=== PATIENT | male | born 1990 | race Caucasian/White ===

== ENCOUNTER 2017-08-28 19:38 | Emergency (ER) | END 2017-08-28 22:38 | disposition home or self-care (01) ==

== ENCOUNTER 2018-05-17 11:27 | Inpatient (IN) | payer SELFPAY ==
[~2018-05-17] VITALS: Ht 157.5 cm; Wt 86.3 kg
[2018-05-17] VITALS (12 sets, daily range): BP systolic 129–180; BP diastolic 65–112; PULSE 64–109; RESP 17–24; Ht 157.5 cm; Wt 86.3 kg
[~2018-05-17 11:27] MED LIST: ASPIRIN 81 MG TAB ONE; CYCL10TA7 PO; IBUP-1542 PO; NITROGLYCERIN (SL) 0.4 MG TAB ONE
[2018-05-17] MEDS ORDERED: HEPARIN 1000 UNITS/ML 10 ML INJ ONE (11:46)
[2018-05-17] MEDS ORDERED: VERAPAMIL 5 MG INJ ONE (11:46)
[2018-05-17] MEDS ORDERED: NITROGLYCERIN (IC) 100 MCG/ML INJ ONE (11:46)
--- NOTE | 2018-05-17 11:55 | CONS ---
Assessment/Plan Assessment/Plan Hospital Course (Demo Recall) Anterior STEMI: in a 27 yo meth abuser, still suspicious for spasm but no response to SL NTG and ongoing symptoms so cath to eval. Meth abuse -to rn cardiac cath emergently for cath Consultation Date/Type/Reason Admit Date/Time Date of Consultation: May 17, 2018 Type of Consult Interventional cardiology Reason for Consultation STEMI Requesting Provider: SHERON ANDERSON MD Date/Time of Note DATE: 05/17/18 TIME: 11:52 Hx of Present Illness 27 yo M with meth abuse history who presented with chest pain. He last used meth 2 days ago. The chest pain started this am. He was given NTG SL x 3 without response and with continued chest pain and STEMI by EKG. per hpi Past Medical History per hPI Home Meds Active Scripts Cyclobenzaprine Hcl* (Cyclobenzaprine Hcl*) 10 Mg Tablet, 10 MG PO TID, #15 TAB Prov:COLEEN MCPHERSON PA-C 08/28/17 Ibuprofen* (Motrin*) 600 Mg Tab, 600 MG PO Q6, #30 TAB Prov:COLEEN MCPHERSON PA-C 08/28/17 Medications Current Medications Aspirin (Aspirin) 324 mg ONCE ONCE PO ; Start 05/17/18 at 12:00; Stop 05/17/18 at 12:01 Nitroglycerin (Nitroglycerin (Sl Tab) 0.4 Mg) 1 tab ONCE ONCE SL ; Start 05/17/18 at 12:00; Stop 05/17/18 at 12:01 Social History Smoking Status: Never smoker Exam/Review of Systems Exam Vitals Vital Signs Date Temp Pulse Resp B/P (MAP) Pulse Ox O2 O2 Flow FiO2 Time Delivery Rate 05/17/18 72 24 176/110 100 Room Air 11:47 (132) 05/17/18 98.4 11:40 Constitutional: alert, distress Head: normocephalic, atraumatic Neck: No jvd Respiratory: clear to auscultation, diminished breath sounds Cardiovascular: regular rate and rhythm; No edema Gastrointestinal: soft, non-tender; No distended Neurological: nl mental status, nl speech Results Results 24hrs Laboratory Tests Test 05/17/18 11:40 White Blood Count Pending Red Blood Count Pending Hemoglobin Pending Hematocrit Pending Mean Corpuscular Volume Pending Mean Corpuscular Hemoglobin Pending Mean Corpuscular Hemoglobin Concent Pending Red Cell Distribution Width Pending Platelet Count Pending Mean Platelet Volume Pending Medications Medication Current Medications Aspirin (Aspirin) 324 mg ONCE ONCE PO ; Start 05/17/18 at 12:00; Stop 05/17/18 at 12:01 Nitroglycerin (Nitroglycerin (Sl Tab) 0.4 Mg) 1 tab ONCE ONCE SL ; Start 05/17/18 at 12:00; Stop 05/17/18 at 12:01 KIMI VELOZ May 17, 2018 11:55
[2018-05-17] MEDS ORDERED: NITROGLYCERIN (SL) 0.4 MG TAB ONE (11:56)
[2018-05-17] MEDS ORDERED: NITROGLYCERIN (SL) 0.4 MG TAB SL ONE ×2 (12:00→20:30)
[2018-05-17] MEDS ORDERED: ASPIRIN 81 MG TAB PO ONE (12:00)
[2018-05-17] MEDS ORDERED: FENTAnyl 50 MCG/ML VIAL ONE (12:05)
[2018-05-17] MEDS ORDERED: TICAGRELOR 90 MG TABLET ONE (12:10)
[2018-05-17] MEDS ORDERED: BIVALIRUDIN 250MG /NS 50 ML 50 ML IVPB ONE ×2 (12:19→12:46)
[2018-05-17] MEDS ORDERED: IODIXANOL LOCM 100 ML BTL ONE (12:53)
[2018-05-17] MEDS ORDERED: IOHEXOL 350MG/ML 50 ML BTL ONE (12:53)
[2018-05-17] MEDS ORDERED: LIDOCAINE 1% (MDV) 20 ML INJ ONE (12:53)
--- NOTE | 2018-05-17 13:23 | OPR ---
Date/Time of Note Date/Time of Note DATE: 05/17/18 TIME: 13:09 Operative Report Procedure Date: May 17, 2018 Preoperative Diagnosis ANterior STEMI Postoperative Diagnosis same s/p PCI of LAD Operation/Procedure Performed see details Surgeon see signature line Makeup Sales Consultant none Anesthesia Type: moderate sedation Estimated Blood Loss: minimal Transfusion none Specimen none Grafts/Implants none Complications none Procedure Description Procedure Date:05/17/2018 Parts Person/surgeon: Carlin Pastrana MD. Procedures Performed: 1)Left heart catheterization with selective left and right coronary angiography. 2)Balloon angioplasty and stenting of the prox to mid LAD with Synergy 2.5 x 16 and 2.75 x 20 overlapping stents Pre-operative Diagnosis:anterior STEMI Post-operative Diagnosis:same s/p PCI Indications: 27 yo M with meth abuse, presenting with chest pain and anterior STEMI. No response to SL NTG and continued symptoms so taken to the slabber for evaluation. Description of Procedure: After informed consent, the patient was brought to the cardiac catheterization l ab. The procedure site was prepped and draped in usual manner. The patient was premedicated with fentanyl 50 mcg. 3 mL lidocaine was injected into the right groin. Next using the posterior wall technique, the 6/5 [place] island[place] sheath was inserted into the right radial artery. Next using the EBU 3.25 guide and JR4 diagnostic, selective angiography of the left and right coronary arteries were obtained. The decision was made to proceed with PCI of the LAD after there was no response with IC NTG. A 6 [place] islander EBU 3.25 guide was advanced and engaged into the left coronary artery. After appropriate anticoagulation and antiplatelets were given, the BMW angioplasty wire was used but could not be advanced to the main distal LAD. It kept going into the septal. Next a PT 2 light support wire was also used but again was thought to be in the septal. The proximal aspect of the wire was in the LAD so this was dilated with the 2.0 x 12 balloon with minimal flow and still no evidence of the distal LAD. Eventually the BMW was redirected into the true LAD and the lesion dilated with the 2.0 balloon. There was now MARGARITA 3 flow. The mid lesion at the septal appeared to be the main culprit as it was hazy so this was stented with a Synergy 2.5 x 16 stent. The proximal occlusion was still thought to be part of the overall plaque so this too was stented with a Synergy 2.75 x 20 stent overlapping with the mid stent. Next the stent was post dilated with the 2.75 X 12 noncompliant balloon times Final angiography revealed MARGARITA 3 flow, no edge dissection, and appropriate stent expansion. The pigtail was then advanced into the ventricle and hemodynamics obtained. Left ventricle angiography was not obtained. Next all equipment was removed and hemostasis was achieved by TR band. Findings: Anatomy/Hemodynamics: Left main:normal LAD: prox 100% unresponsive to IC NTG Diagonal:ostial 40% at prox LAD Circumflex:luminal irregularities Obtuse marginal:luminal irregularities RCA:luminal irregularities PDA:luminal irregularities PLV:luminal irregularities LV angiography:note done LV-Ao:no gradient LVEDP:25 mmHg Contrast used:150 mL Medications used: Fentanyl 50 NTG IC Radial cocktail: heparin 4000 units, NTG 200mcg, verapamil 2.5mg Angiomax Brilinta 180mg Equipment used: 6 [place] islander EBU 3.25 guide BMW and PT 2 LS angioplasty wire 2 x 12 balloon Synergy 2.5 x 16 drug eluting stent Synergy 2.75 x 20 drug eluting stent 2.75 x 12 noncompliant balloon Estimated blood loss<10 mL. Specimen: none Grafts/implants: none Complications: none Assessment: Anterior STEMI/CAD: s/p PCI of prox to mid LAD. Appeared to be plaque rupture MD rather than spasm from meth abuse Meth abuse Plan: -ASA -Brilinta 90mg BID if pt can obtain insurance, otherwise switch to plavix -lipitor 80mg -lisinopril 10mg -start coreg if pt can show abstinence from methamphetamines -check echo CARLIN PASTRANA May 17, 2018 13:22
--- NOTE | 2018-05-17 14:49 | HP ---
Date/Time of Note Date/Time of Note DATE: 05/17/18 TIME: 14:35 Assessment/Plan VTE Prophylaxis Pharmacological prophylaxis: NA/contraindicated Pharm contraindication: bleeding Lines/Catheters IV Catheter Type (from Nrs): Saline Lock Urinary Cath still in place: No Assessment/Plan Assessment/Plan 27 yo man no PMH, active tobacco smoker and meth user presents with STEMI. #STEMI - s/p cardiac cath and stent on 05/17/18. - Cont aspirin and (brilinta or plavix) - Risk factors: Obesity, tobacco, cigarettes. - Will send lipids, TSH, A1C as well. - Dr. Pastrana following, appreciate block action. - Monitor overnight in ICU #Tobacco use - Patient strongly counselled on cessation - Declined nicotine patch #Meth use - Patient strongly counselled on cessation Result Diagram: 05/17/18 1140 05/17/18 1140 HPI/ROS Admit Date/Time Admit Date/Time May 17, 2018 Hx of Present Illness Mr. Figueroa is a pleasant 27 yo man who presents to the ED with chest pain; found to have acute STEMI. He was in his usual state of health until 1 week ago. Post-coitally, he smoked a cigarette then walked down the stairs when he developed pressure-like substernal chest pain. Never had this pain before in his life. Called mother who told him to call an ambulance. Ambulance arrived, took his vitals, said he looked fine. Asked if he wanted to go to the hospital and patient declined. 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 Called his mother to drive him to the emergency room. In the ED he was afebrile, hypertensive to 196/133, P 70s, RR 24. EKG with ST elevations in V2-V5. Code STEMI was called. Taken to lab[facility] wh[facility] by Dr. Pastrana. Found to have proximal and mid LAD 100% occlusion which was stented with MARGARITA 3 flow. Post-procedure taken to ICU. Currently feeling well, chest pain free, no compla ints. ROS Denies recent fevers, chills, weight loss, anorexia, night sweats, sore throat, dysphagia, nausea, vomiting, dyspnea, cough, diarrhea, constipation, dysuria, hematuria. PMH/Family/Social Past Medical History Denies Medications Current Medications Aspirin (Aspirin) 81 mg DAILY PO ; Start 05/18/18 at 09:00 Ticagrelor (Brilinta) 90 mg BID PO ; Start 05/17/18 at 21:00 Atorvastatin Calcium (Lipitor) 80 mg QHS PO ; Start 05/17/18 at 21:00 Lisinopril (Zestril) 10 mg DAILY PO ; Start 05/18/18 at 09:00 Bivalirudin 50 ml @ 32 mls/hr Q1H34M IVPB ; Start 05/17/18 at 14:30; Stop 05/17/18 at 17:00 Coded Allergies: No Known Allergy (Unverified , 05/17/18) Past Surgical History Denies Social History Alcohol Use: none Smoking Status: Current every day smoker (1 pack every 3-4 days (6-8 cigs per day)) Drug Use: other (Smoked methamphetamine on and off since age 22, most recently every weekend. ) Exam/Review of Systems Vital Signs Vitals Vital Signs Date Temp Pulse Resp B/P (MAP) Pulse Ox O2 O2 Flow FiO2 Time Delivery Rate 05/17/18 98.9 86 17 129/93 Room Air 13:30 (105) 05/17/18 100 11:47 Exam Exam Gen: Obese 27 yo man lying in bed well appearing, no acute distress. Eyes: PERRL, no icterus HEENT: Moist mucous membranes clear oropharynx Neck: No lymphadenopathy, nontender Card: Regular rate and rhythm, no murmurs appreciated Pulm: Clear to auscultation bilaterally, breathing comfortably room air. Abd: Soft, nontender, nondistended. Ext: R arm pressure dressing intact. No active bleeding. Otherwise no cyanosis/clubbing/edema, good peripheral pulses Skin: warm, dry, well perfused. HALI DING MD May 17, 2018 14:46
[2018-05-17] MEDS: BIVALIRUDIN 250MG /NS 50 ML 50 ML IVPB SCH ×2 (15:27→16:04)
--- NOTE | 2018-05-17 17:49 | ERD ---
ER Documentation Chief Complaint Chief Complaint substernal chest pain HPI The patient is a 27-year-old male, presenting to the ER because of substernal chest pain intermittently for 1 week, worse today about 1 hour prior to arrival, about 10 AM, radiating down to left arm. He is diaphoretic, 10/10, no aggravating or relieving factor. He denies similar symptoms previously, denies headache, neck pain, dyspnea, abdominal pain, vomiting, dysuria, diarrhea. He does not drink but smokes and does amphetamine, last use was about 2 days ago Medical/surgical history: None ROS All systems reviewed and are negative except as per history of present illness. Medications Home Meds Active Scripts Cyclobenzaprine Hcl* (Cyclobenzaprine Hcl*) 10 Mg Tablet, 10 MG PO TID, #15 TAB Prov:COLEEN MCPHERSON PA-C 08/28/17 Ibuprofen* (Motrin*) 600 Mg Tab, 600 MG PO Q6, #30 TAB Prov:COLEEN MCPHERSON PA-C 08/28/17 Allergies Allergies: Coded Allergies: No Known Allergy (Unverified , 05/17/18) PMhx/Soc Medical and Surgical Hx: pt denies Medical Hx, pt denies Surgical Hx History of Surgery: No Anesthesia Reaction: No Hx Neurological Disorder: No Hx Respiratory Disorders: No Hx Cardiac Disorders: No Hx Psychiatric Problems: No Hx Miscellaneous Medical Probl: No Hx Substance Use: No (CRYSTAL METH, POT (1 DUB EVERY 2-3 DAYS)) Hx Tobacco Use: Yes Smoking Status: Current every day smoker (1 pack every 3-4 days (6-8 cigs per day)) Physical Exam Vitals Vital Signs Date Temp Pulse Resp B/P (MAP) Pulse Ox O2 O2 Flow FiO2 Time Delivery Rate 05/17/18 72 24 176/110 100 Room Air 11:47 (132) 05/17/18 76 24 176/120 100 Room Air 11:45 (138) 05/17/18 98.4 71 24 196/133 100 11:40 (154) Physical Exam Const: No acute distress. Head: Atraumatic. Eyes: Normal Conjunctiva. ENT: Normal External Ears, Nose and Mouth. Neck: Full range of motion. No meningismus. Resp: Clear to auscultation bilaterally. Cardio: Regular rate and rhythm. Diaphoretic Abd: Soft, non distended, normal bowel sounds, non tender. Skin: No petechiae or rashes. Back: No midline or flank tenderness. Ext: No cyanosis, or edema. Neur: Awake and alert. No focal deficit Psych: Normal Mood and Affect. Result Diagram: 05/17/18 1140 05/17/18 1140 Results 24 hrs Laboratory Tests Test 05/17/18 11:40 White Blood Count 8.9 10^3/ul Red Blood Count 5.63 10^6/ul Hemoglobin 17.4 g/dl Hematocrit 50.0 % Mean Corpuscular Volume 88.8 fl Mean Corpuscular Hemoglobin 30.9 pg Mean Corpuscular Hemoglobin Concent 34.8 g/dl Red Cell Distribution Width 12.3 % Platelet Count 346 10^3/UL Mean Platelet Volume 9.6 fl Immature Granulocytes % 0.300 % Neutrophils % 52.4 % Lymphocytes % 36.5 % Monocytes % 9.3 % Eosinophils % 1.1 % Basophils % 0.4 % Nucleated Red Blood Cells % 0.0 /100WBC Immature Granulocytes # 0.030 10^3/ul Neutrophils # 4.7 10^3/ul Lymphocytes # 3.3 10^3/ul Monocytes # 0.8 10^3/ul Eosinophils # 0.1 10^3/ul Basophils # 0.0 10^3/ul Nucleated Red Blood Cells # 0.0 10^3/ul Prothrombin Time 12.8 Sec Prothrombin Time Ratio 1.0 INR International Normalized Ratio 0.95 Activated Partial Thromboplast Time 25.7 Sec Sodium Level 142 mmol/L Potassium Level 4.2 mmol/L Chloride Level 104 mmol/L Carbon Dioxide Level 27 mmol/L Anion Gap 11 Blood Urea Nitrogen 11 mg/dl Creatinine 0.86 mg/dl Est Glomerular Filtrat Rate mL/min > 60 mL/min Glucose Level 128 mg/dl Calcium Level 9.8 mg/dl Troponin I 0.014 ng/ml Current Medications Medications Dose Sig/Luca Start Time Status Last (Trade) Ordered Route PRN Stop Time Admin Dose Reason Admin Heparin 10,000 unit STK-MED 05/17/18 DC Sodium ONCE .ROUTE 11:46 05/17/18 (Porcine) 11:47 (Heparin (1000 Units/ml)) Verapamil 5 mg STK-MED 05/17/18 DC HCl ONCE .ROUTE 11:46 05/17/18 (Verapamil) 11:47 1,000 mcg STK-MED 05/17/18 DC Nitroglycerin ONCE .ROUTE 11:46 05/17/18 11:47 (Nitroglyceri n (Intracoronar y)) 25 tab STK-MED 05/17/18 DC Nitroglycerin ONCE .ROUTE 11:56 05/17/18 11:57 (Nitroglyceri n (Sl Tab) 0.4 Mg) Procedures/MDM EKG: At 11:31 PM read by emergency physician Rate/Rhythm: Normal Sinus Rhythm 71 beats/min QRS, ST, T-waves: Anterior ST elevation with reciprocal change, no PVC Impression: Abnormal EKG, anterior STEMI Consultation: I discussed the patient with the on-call plate shop helper Zeina at 11:35 PM, who was made aware of the patient condition, the treatment, the EKG findings. He came to the ER shortly after to evaluate patient and took the patient to the [facility] chest x-ray and labs are pending He went to [facility] prior to availability of the labs and chest x-ray results \MEDICAL MAKING DECISION: The patient is a 27-year-old male, presenting with acute anterior STEMI, was treated with aspirin 325 mg chew and swallow, 3 nitroglycerin sublingual approximately 5 minutes apart with minimal response. EKG was unchanged after nitroglycerin administration. The chest is persistent. The differential diagnoses considered include but are not limited to coronary spasm, acute coronary syndrome, acute myocardial infarction, pericarditis, pulmonary embolism, aortic dissection, pneumonia, pleural effusion, pneumothorax, GERD, chest wall pain. Critical Care: Time: 35 minutes excluding all billable procedures. Treatments/Evaluations: Close monitoring and treatment of unstable vital signs, cardiorespiratory, and neurologic status, while maintaining tight balance of fluid, respiratory, and cardiac interventions. Departure Diagnosis: Primary Impression: ST elevation myocardial infarction (STEMI) Condition: Critical Comments I discussed the findings with the patient. I discussed the patient with the hospitalist Dr Aguilar at 12pm . who was made aware of the lab, the treatment, the patient condition. The patient is admitted to ICU Disclaimer: Inadvertent spelling and grammatical errors are likely due to EHR/dictation software use and do not reflect on the overall quality of patient care. Also, please note that the electronic time recorded on this note does not necessarily reflect the actual time of the patient encounter. SHERON ANDERSON MD 4, 2019 17:49
[2018-05-17] MEDS ORDERED: morphine 2 MG INJ IV STA (20:52)
[2018-05-17] MEDS ORDERED: NITROGLYCERIN (SL) 0.4 MG TAB SL PRN (21:00)
[2018-05-17] MEDS: ATORVASTATIN 80 MG TAB PO SCH (21:06)
[2018-05-17] MEDS: TICAGRELOR 90 MG TABLET PO SCH (21:07)
[2018-05-17] MEDS ORDERED: morphine 2 MG INJ IV PRN (21:30)
[2018-05-18] VITALS (25 sets, daily range): BP systolic 93–168; BP diastolic 58–104; PULSE 69–95; RESP 16–27
[2018-05-18] MEDS: ASPIRIN 81 MG TAB PO SCH (08:12)
[2018-05-18] MEDS: LISINOPRIL 10 MG TAB PO SCH (08:12)
[2018-05-18] MEDS: TICAGRELOR 90 MG TABLET PO SCH ×2 (08:16→20:27)
--- NOTE | 2018-05-18 09:10 | PN ---
Date/Time of Note Date/Time of Note DATE: 05/18/18 TIME: 09:05 Assessment/Plan VTE Prophylaxis Risk score (from Nsg)>0 risk: 3 SCD applied (from Ns): No SCD contraindicated: low risk/ambulating Pharmacological prophylaxis: NA/contraindicated Pharm contraindication: low risk/ambulating Lines/Catheters IV Catheter Type (from Nrs): Saline Lock Urinary Cath still in place: No Assessment/Plan Assessment/Plan 27 yo man no PMH, active tobacco smoker and meth user presents with STEMI. #STEMI - s/p cardiac cath and stent on 05/17/18. - Cont aspirin and (brilinta or plavix) - Risk factors: Obesity, tobacco, cigarettes. - A1C, TSH normal - Dr. Pastrana following #Tobacco use - Patient strongly counselled on cessation - Declined nicotine patch #Meth use - Patient strongly counselled on cessation Result Diagram: 05/18/18 0433 05/18/18 0433 Subjective 24 Hr Interval Summary Free Text/Dictation Overnight had some chest soreness, relieved by morphine. Otherwise slept well. No acute overnight events. Tolerating diet, ambulating. Exam/Review of Systems Exam Vitals Vital Signs Date Temp Pulse Resp B/P (MAP) Pulse Ox O2 O2 Flow FiO2 Time Delivery Rate 05/18/18 76 19 122/84 Room Air 07:00 (97) 05/18/18 99.4 04:00 05/17/18 100 11:47 Intake and Output 05/17/18 05/17/18 05/18/18 1515:00 23:00 07:00 IntakeIntake Total 300 ml 650 ml BalanceBalance 300 ml 650 ml Exam Gen: Obese 27 yo man lying in bed well appearing, no acute distress. Eyes: PERRL, no icterus HEENT: Moist mucous membranes clear oropharynx Neck: No lymphadenopathy, nontender Card: Regular rate and rhythm, no murmurs appreciated Pulm: Clear to auscultation bilaterally, breathing comfortably room air. Abd: Soft, nontender, nondistended. Ext: R wrist not bleeding, clean. No active bleeding. Otherwise no cyanosis/clubbing/edema, good peripheral pulses Skin: warm, dry, well perfused. Results Results 24hrs Laboratory Tests Test 05/17/18 11:40 05/17/18 17:02 05/17/18 20:46 05/18/18 00:07 White Blood Count 8.9 Red Blood Count 5.63 Hemoglobin 17.4 Hematocrit 50.0 Mean Corpuscular Volume 88.8 Mean Corpuscular 30.9 Hemoglobin Mean Corpuscular 34.8 Hemoglobin Concent Red Cell Distribution 12.3 Width Platelet Count 346 Mean Platelet Volume 9.6 Immature Granulocytes % 0.300 Neutrophils % 52.4 Lymphocytes % 36.5 Monocytes % 9.3 Eosinophils % 1.1 Basophils % 0.4 Nucleated Red Blood 0.0 Cells % Immature Granulocytes # 0.030 Neutrophils # 4.7 Lymphocytes # 3.3 H Monocytes # 0.8 Eosinophils # 0.1 Basophils # 0.0 Nucleated Red Blood 0.0 Cells # Prothrombin Time 12.8 Prothrombin Time Ratio 1.0 INR International 0.95 Normalized Ratio Activated 25.7 Partial Thromboplast Time Sodium Level 142 Potassium Level 4.2 Chloride Level 104 Carbon Dioxide Level 27 Anion Gap 11 Blood Urea Nitrogen 11 Creatinine 0.86 Est Glomerular Filtrat > 60 Rate mL/min Glucose Level 128 Calcium Level 9.8 Troponin I 0.014 15.800 *H 20.900 *H 21.800 *H Creatine Kinase 1065 H 1222 H 1175 H Creatine Kinase Index 9.2 9.8 10.0 Creatinine Kinase MB 97.80 H 120.00 H 118.00 H (Mass) Test 05/18/18 04:30 05/18/18 04:33 Creatine Kinase 954 H Creatine Kinase Index Pending Creatinine Kinase MB Pending (Mass) Troponin I Pending White Blood Count 16.3 #H Red Blood Count 5.70 Hemoglobin 17.5 Hematocrit 49.7 Mean Corpuscular Volume 87.2 Mean Corpuscular 30.7 Hemoglobin Mean Corpuscular 35.2 Hemoglobin Concent Red Cell Distribution 12.2 Width Platelet Count 341 Mean Platelet Volume 10.1 Immature Granulocytes % 0.600 H Neutrophils % 78.7 H Lymphocytes % 13.0 L Monocytes % 7.0 Eosinophils % 0.4 Basophils % 0.3 Nucleated Red Blood 0.0 Cells % Immature Granulocytes # 0.100 H Neutrophils # 12.8 H Lymphocytes # 2.1 Monocytes # 1.1 H Eosinophils # 0.1 Basophils # 0.1 Nucleated Red Blood 0.0 Cells # Sodium Level 138 Potassium Level 4.0 Chloride Level 104 Carbon Dioxide Level 25 Anion Gap 9 Blood Urea Nitrogen 7 Creatinine 0.66 Est Glomerular Filtrat > 60 Rate mL/min Glucose Level 122 Calcium Level 9.6 Phosphorus Level 3.7 Magnesium Level 2.0 Total Bilirubin 0.7 Direct Bilirubin 0.00 Indirect Bilirubin 0.7 Aspartate Amino 177 H Transf (AST/SGOT) Alanine 48 Aminotransferase (ALT/SG PT) Alkaline Phosphatase 117 Total Protein 7.5 Albumin 4.4 Globulin 3.10 Albumin/Globulin Ratio 1.41 Triglycerides Level 227 H Cholesterol Level 160 LDL Cholesterol, 81 Calculated HDL Cholesterol 34 Cholesterol/HDL Ratio 4.7 Thyroid Stimulating 2.800 Hormone (TSH) Medications Medication Current Medications Aspirin (Aspirin) 81 mg DAILY PO Last administered on 05/18/18 08:12; Admin Dose 81 MG; Start 05/18/18 at 09:00 Ticagrelor (Brilinta) 90 mg BID PO Last administered on 05/18/18 08:16; Admin Dose 90 MG; Start 05/17/18 at 21:00 Atorvastatin Calcium (Lipitor) 80 mg QHS PO Last administered on 05/17/18at 21:06 ; Admin Dose 80 MG; Start 05/17/18 at 21:00 Lisinopril (Zestril) 10 mg DAILY PO Last administered on 05/18/18 08:12; Admin Dose 10 MG; Start 05/18/18 at 09:00 Carvedilol (Coreg) 12.5 mg BID PO Last administered on 05/18/18 08:11; Admin Dose 12.5 MG; Start 05/17/18 at 18:39 Nitroglycerin (Nitroglycerin (Sl Tab) 0.4 Mg) 1 tab Q5M PRN SL ANGINA; Start 05/17/18 at 21:00 Morphine Sulfate (morphine) 1 mg Q2H PRN IV SEVERE PAIN LEVEL 7-10; Start 05/17/18 at 21:30; Stop 05/18/18 at 21:29 HALI DING MD May 18, 2018 09:10
--- NOTE | 2018-05-18 16:03 | RADRPT ---
Echocardiogram Report Patient Name: Tyrone PINEDA ID: [id number] : 1990 (27y 6m)Study Date: 05/18/2018 12:50:11 PM Gender: MAccession #: [id number] Tech: Azul Londono BERNADETTE Location: 116 Ref.Physician: HALI DING Height(Cm): BSA: Weight(Kg): Quality: AdequateAccount #: Procedures: Echocardiographic Report: Transthoracic echocardiogram with complete 2D, M-Mode, and doppler examination. Indications: NSTEMI. Measurements: 2D/M Mode Doppler Measurement Value Normal Range Measurement Value Normal Range LVIDd 2D 4.3 [ 4.2 - 5.8 ] cm AV Peak Devan 1.2 [ 100.0 - 170.0 ] cm/sec LVIDs 2D 2.9 [ 2.5 - 4.0 ] cm AV Peak PG 5.0 [ 2.0 - 9.0 ] mmHg LVPWd 2D 1.3 [ 0.6 - 1.0 ] cm LVOT Peak Devan 1.0 [ 70.0 - 110.0 ] cm/sec IVSd 2D 1.3 [ 0.6 - 1.0 ] cm LVOT Peak PG 4.0 [ 2.0 - 6.0 ] mmHg AoR Diam 2D 3.0 [ 2.6 - 3.4 ] cm MV E Peak Devan 0.7 [ 60.0 - 130.0 ] cm/sec EDV 2D 85.4 [ 62.0 - 150.0 ] ml MV A Peak Devan 0.5 [ 100.0 - 120.0 ] cm/sec ESV 2D 33.3 [ 21.0 - 61.0 ] ml MV E/A 1.6 [ 0.8 - 1.5 ] ratio EF 2D 61.0 [ 52.0 - 72.0 ] percent MV Decel Time 190 [ 104 - 258 ] msec LA Dimen 2D 2.8 [ 3.0 - 4.0 ] cm Lat E` Devan 0.1 [ 10.0 - 15.0 ] cm/sec Lateral E/E` 9.8 [ 1.0 - 2.0 ] ratio MV E/A 1.6 [ 0.8 - 1.5 ] ratio TR Peak Devan 2.4 [ 100.0 - 280.0 ] cm/sec TR Peak PG 24.0 mmHg RVSP 27.0 [ 10.0 - 36.0 ] mmHg RA Pressure 3.0 mmHg Findings: Left Ventricle: Normal left ventricular cavity size. Mild concentric left ventricular hypertrophy. Mild left ventricular systolic dysfunction. Ejection fraction is visually estimated at 45 %. Tissue Doppler/Mitral Doppler indices are within normal limits. These segments of the LV are hypokinetic inferoseptum mid segment, anteroseptum mid segment and apical septum. Right Ventricle: Normal right ventricular size. Normal right ventricular systolic function. Left Atrium: The left atrium is normal in size. Right Atrium: The right atrium is normal in size. Mitral Valve: Normal appearance of the mitral valve. Normal appearance and function of the mitral valve with trace physiologic regurgitation. Aortic Valve: Normal appearance of the aortic valve. No significant aortic stenosis or insufficiency. Tricuspid Valve: Normal appearance of the tricuspid valve. Estimated peak PA systolic pressure 27 mmHg. There is trace tricuspid regurgitation. Pulmonic Valve: Normal pulmonic valve appearance. Pericardium: Normal pericardium with no significant pericardial effusion. Aorta: Normal aortic root. IVC: Normal size and normal respiratory collapse consistent with normal right atrial pressure. Conclusions: Normal left ventricular cavity size. Mild concentric left ventricular hypertrophy. Mild left ventricular systolic dysfunction. Ejection fraction is visually estimated at 45 %. Tissue Doppler/Mitral Doppler indices are within normal limits. These segments of the LV are hypokinetic inferoseptum mid segment, anteroseptum mid segment and apical septum. No significant valvular stenosis or regurgitation seen. Estimated peak PA systolic pressure 27 mmHg. Normal size and normal respiratory collapse consistent with normal right atrial pressure. Electronically Signed By: Carlin Pastrana 2018-05-18 16:02:34 PST
--- NOTE | 2018-05-18 16:29 | CONS ---
Assessment/Plan Assessment/Plan Hospital Course (Demo Recall) Anterior STEMI/CAD: s/p PCI of prox to mid LAD. Appeared to be plaque rupture IN rather than spasm from meth abuse. Ischemic cardiomyopathy: Luckily not much myocardial damage and EF about 45% with mostly septal WMA HTN Meth abuse -ASA 81mg lifelong -brilinta 90mg BID x 1 year -lipitor 80mg -lisinopril 10mg -coreg 12.5mg BID (so far no issues and pt determined not to use meth) transfer to tele. Hopefully home tomorrow Consultation Date/Type/Reason Admit Date/Time May 17, 2018 at 11:59 Initial Consult Date 05/17/18 Type of Consult Interventional cardiology Requesting Provider: SHERON ANDERSON MD Date/Time of Note DATE: 05/18/18 TIME: 16:26 24 HR Interval Summary Free Text/Dictation Did well overnight. Mild chest "soreness" which he had post procedure. Now all symptoms resolved, Received his outpt Brilinta. Will be transferred to tele. Exam/Review of Systems Exam Vitals Vital Signs Date Temp Pulse Resp B/P (MAP) Pulse Ox O2 O2 Flow FiO2 Time Delivery Rate 05/18/18 92 18 113/73 Room Air 14:00 (86) 05/18/18 98.7 12:00 05/17/18 100 11:47 Intake and Output 05/17/18 05/17/18 05/18/18 1515:00 23:00 07:00 IntakeIntake Total 300 ml 650 ml BalanceBalance 300 ml 650 ml Constitutional: alert, oriented Psych: no complaints, nl mood/affect Head: normocephalic, atraumatic Neck: supple; No jvd Respiratory: clear to auscultation; No crackles/rales Cardiovascular: regular rate and rhythm; No edema, No systolic murmur Gastrointestinal: soft, non-tender Neurological: nl mental status, nl speech Results Result Diagram: 05/18/18 0433 05/18/18 0433 Results 24hrs Laboratory Tests Test 05/17/18 17:02 05/17/18 20:46 05/18/18 00:07 05/18/18 04:30 Creatine Kinase 1065 H 1222 H 1175 H 954 H Creatine Kinase Index 9.2 9.8 10.0 10.2 Creatinine Kinase MB 97.80 H 120.00 H 118.00 H 97.70 H (Mass) Troponin I 15.800 *H 20.900 *H 21.800 *H 17.700 *H Test 05/18/18 04:33 05/18/18 14:29 White Blood Count 16.3 #H Red Blood Count 5.70 Hemoglobin 17.5 Hematocrit 49.7 Mean Corpuscular Volume 87.2 Mean Corpuscular 30.7 Hemoglobin Mean Corpuscular 35.2 Hemoglobin Concent Red Cell Distribution 12.2 Width Platelet Count 341 Mean Platelet Volume 10.1 Immature Granulocytes % 0.600 H Neutrophils % 78.7 H Lymphocytes % 13.0 L Monocytes % 7.0 Eosinophils % 0.4 Basophils % 0.3 Nucleated Red Blood 0.0 Cells % Immature Granulocytes # 0.100 H Neutrophils # 12.8 H Lymphocytes # 2.1 Monocytes # 1.1 H Eosinophils # 0.1 Basophils # 0.1 Nucleated Red Blood 0.0 Cells # Sodium Level 138 Potassium Level 4.0 Chloride Level 104 Carbon Dioxide Level 25 Anion Gap 9 Blood Urea Nitrogen 7 Creatinine 0.66 Est Glomerular Filtrat > 60 Rate mL/min Glucose Level 122 Hemoglobin A1c 5.2 Calcium Level 9.6 Phosphorus Level 3.7 Magnesium Level 2.0 Total Bilirubin 0.7 Direct Bilirubin 0.00 Indirect Bilirubin 0.7 Aspartate Amino 177 H Transf (AST/SGOT) Alanine 48 Aminotransferase (ALT/SG PT) Alkaline Phosphatase 117 Total Protein 7.5 Albumin 4.4 Globulin 3.10 Albumin/Globulin Ratio 1.41 Triglycerides Level 227 H Cholesterol Level 160 LDL Cholesterol, 81 Calculated HDL Cholesterol 34 Cholesterol/HDL Ratio 4.7 Thyroid Stimulating 2.800 Hormone (TSH) Creatine Kinase 495 #H Creatine Kinase Index 8.7 Creatinine Kinase MB 43.10 H (Mass) Troponin I 11.000 *H Medications Medication Current Medications Aspirin (Aspirin) 81 mg DAILY PO Last administered on 05/18/18at 08:12; Admin Dose 81 MG; Start 05/18/18 at 09:00 Ticagrelor (Brilinta) 90 mg BID PO Last administered on 05/18/18at 08:16; Admin Dose 90 MG; Start 05/17/18 at 21:00 Atorvastatin Calcium (Lipitor) 80 mg QHS PO Last administered on 05/17/18at 21:06; Admin Dose 80 MG; Start 05/17/18 at 21:00 Lisinopril (Zestril) 10 mg DAILY PO Last administered on 05/18/18at 08:12; Admin Dose 10 MG; Start 05/18/18 at 09:00 Carvedilol (Coreg) 12.5 mg BID PO Last administered on 05/18/18at 08:11; Admin Dose 12.5 MG; Start 05/17/18 at 18:39 Nitroglycerin (Nitroglycerin (Sl Tab) 0.4 Mg) 1 tab Q5M PRN SL ANGINA; Start 05/17/18 at 21:00 Morphine Sulfate (morphine) 1 mg Q2H PRN IV SEVERE PAIN LEVEL 7-10; Start 05/17/18 at 21:30; Stop 05/18/18 at 21:29 KIMI VELOZ May 18, 2018 16:29
[2018-05-18] MEDS: ATORVASTATIN 80 MG TAB PO SCH (20:26)
[2018-05-19] VITALS (10 sets, daily range): BP systolic 105–132; BP diastolic 56–88; PULSE 71–91; RESP 18–22
[2018-05-19] MEDS: ASPIRIN 81 MG TAB PO SCH (10:41)
[2018-05-19] MEDS: LISINOPRIL 10 MG TAB PO SCH (10:44)
[2018-05-19] MEDS: TICAGRELOR 90 MG TABLET PO SCH (10:54)
[2018-05-19] MEDS ORDERED: ASPI-831 PO (11:30)
[2018-05-19] MEDS ORDERED: ATOR-2 PO (11:30)
[2018-05-19] MEDS ORDERED: LISI10TA2 PO (11:30)
[2018-05-19] MEDS ORDERED: TICA90TA PO (11:30)
[2018-05-19] MEDS ORDERED: CARV12.579 PO (11:30)
--- NOTE | 2018-05-19 11:31 | PDOCDIS ---
Discharge Instructions DIAGNOSIS Discharge Diagnosis Acute coronary syndrome with myocardial infarction CONDITION [id number] Patient Condition: [id number] Good HOME CARE INSTRUCTIONS: [id number] Diet Instructions: [id number] Low Fat /Cholesterol ACTIVITY: [id number] Activity Restrictions: [id number] No Restrictions FOLLOW UP/APPOINTMENTS Follow-up Plan 1. Take all medications as prescribed. 2. Do not miss a single day of aspirin or ticagrelor. If you do you may develop a blood clot in your stent which would cause another heart attack. 3. Get a primary doctor through your insurance. Make an appointment in 1-2 weeks. 4. Return to the emergency room if you develop repeat pressure-like chest pain. HALI DING MD May 19, 2018 11:31
--- NOTE | 2018-05-19 14:52 | CONS ---
Assessment/Plan Assessment/Plan Hospital Course (Demo Recall) Anterior STEMI/CAD: s/p PCI of prox to mid LAD. Appeared to be plaque rupture [place] rather than spasm from meth abuse. Ischemic cardiomyopathy: Luckily not much myocardial damage and EF about 45% with mostly septal WMA HTN Meth abuse -ASA 81mg lifelong -brilinta 90mg BID x 1 year -lipitor 80mg -lisinopril 10mg -coreg 12.5mg BID (so far no issues and pt determined not to use meth) Ok for d/c home Consultation Date/Type/Reason Admit Date/Time May 17, 2018 at 11:59 Initial Consult Date 05/17/18 Type of Consult Interventional cardiology Requesting Provider: SHERON ANDERSON MD Date/Time of Note DATE: 05/19/18 TIME: 14:50 24 HR Interval Summary Free Text/Dictation No chest pain. Ambulating without issues. Exam/Review of Systems Exam Vitals Vital Signs Date Temp Pulse Resp B/P (MAP) Pulse Ox O2 O2 Flow FiO2 Time Delivery Rate 05/19/18 76 12:00 05/19/18 98.0 22 105/57 96 Room Air 11:14 (73) Intake and Output 05/18/18 05/18/18 05/19/18 1414:59 22:59 06:59 IntakeIntake Total 860 ml 420 ml 100 ml BalanceBalance 860 ml 420 ml 100 ml Constitutional: alert, oriented Psych: no complaints, nl mood/affect Head: normocephalic, atraumatic Neck: supple; No jvd Respiratory: clear to auscultation; No crackles/rales Cardiovascular: regular rate and rhythm; No edema Gastrointestinal: soft, non-tender Neurological: nl mental status, nl speech Results Result Diagram: 05/19/1892805/19/18928 Results 24hrs Laboratory Tests Test 05/19/18 06:50 05/19/18 09:29 Urine Opiates Screen Negative Urine Barbiturates Negative Urine Amphetamines Screen Positive Urine Benzodiazepines Screen Negative Urine Cocaine Screen Negative Urine Cannabinoids Negative White Blood Count 10.9 #H Red Blood Count 5.67 Hemoglobin 17.5 Hematocrit 49.5 Mean Corpuscular Volume 87.3 Mean Corpuscular Hemoglobin 30.9 Mean Corpuscular Hemoglobin Concent 35.4 Red Cell Distribution Width 12.5 Platelet Count 347 Mean Platelet Volume 9.9 Immature Granulocytes % 0.500 H Neutrophils % 70.9 Lymphocytes % 21.2 Monocytes % 6.5 Eosinophils % 0.5 Basophils % 0.4 Nucleated Red Blood Cells % 0.0 Immature Granulocytes # 0.050 H Neutrophils # 7.7 H Lymphocytes # 2.3 Monocytes # 0.7 Eosinophils # 0.1 Basophils # 0.0 Nucleated Red Blood Cells # 0.0 Sodium Level 141 Potassium Level 3.7 Chloride Level 106 Carbon Dioxide Level 26 Anion Gap 9 Blood Urea Nitrogen 15 Creatinine 0.72 Est Glomerular Filtrat Rate mL/min > 60 Glucose Level 149 Calcium Level 9.7 Troponin I 6.470 *H Medications Medication Current Medications Aspirin (Aspirin) 81 mg DAILY PO Last administered on 05/19/18 10:41; Admin Dose 81 MG; Start 05/18/18 at 09:00 Ticagrelor (Brilinta) 90 mg BID PO Last administered on 05/19/18 10:54; Admin Dose 90 MG; Start 05/17/18 at 21:00 Atorvastatin Calcium (Lipitor) 80 mg QHS PO Last administered on 05/18/18 20:26; Admin Dose 80 MG; Start 05/17/18 at 21:00 Lisinopril (Zestril) 10 mg DAILY PO Last administered on 05/19/18 10:44; Admin Dose 10 MG; Start 05/18/18 at 09:00 Carvedilol (Coreg) 12.5 mg BID PO Last administered on 05/19/18 10:44; Admin Dose 12.5 MG; Start 05/17/18 at 18:39 Nitroglycerin (Nitroglycerin (Sl Tab) 0.4 Mg) 1 tab Q5M PRN SL ANGINA; Start 05/17/18 at 21:00 KIMI VELOZ May 19, 2018 14:52
--- NOTE | 2018-05-19 18:03 | DS ---
Date/Time of Note Date/Time of Note DATE: 05/19/18 TIME: 18:01 Discharge Summary Admission/Discharge Info Admit Date/Time May 17, 2018 at 11:59 Discharge Date/Time Discharge Diagnosis Acute coronary syndrome with myocardial infarction Hx of Present Illness Mr. Figueroa is a pleasant 27 yo man who presents to the ED with chest pain; found to have acute STEMI. He was in his usual state of health until 1 week ago. Post-coitally, he smoked a cigarette then walked down the stairs when he developed pressure-like substernal chest pain. Never had this pain before in his life. Called mother who told him to call an ambulance. Ambulance arrived, took his vitals, said he looked fine. Asked if he wanted to go to the hospital and patient declined. 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 Called his mother to drive him to the emergency room. In the ED he was afebrile, hypertensive to 196/133, P 70s, RR 24. EKG with ST elevations in V2-V5. Code STEMI was called. 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 Found to have proximal and mid LAD 100% occlusion which was stented with MARGARITA 3 flow. Post-procedure taken to ICU. Currently feeling well, chest pain free, no complaints. Hospital Course He was monitored for two days in ICU and telemetry. Hospital stay uneventful. Echo did show hypokinesis of inferoseptum mid segment, anteroseptum mid segment and apical septum; confirming infarct or possible stunned myocardium. The patient was able to ambulate, tolerating diet, breathing room air. Discharged on dual antiplatelet, statin, as well as BB+ACEi for hypertension. Unfortunately his insurance (or lack thereof) does not allow him to see Dr. Pastrana in clinic. Home Meds Active Scripts Aspirin (Aspirin) 81 Mg Chew, 81 MG PO DAILY, #90 TAB Prov:HALI DING MD 05/19/18 Lisinopril* (Lisinopril*) 10 Mg Tablet, 10 MG PO DAILY, #90 TAB Prov:HALI DING MD 05/19/18 Carvedilol* (Carvedilol*) 12.5 Mg Tablet, 12.5 MG PO BID, #90 TAB Prov:HALI DING MD 05/19/18 Atorvastatin* (Atorvastatin*) 80 Mg Tablet, 80 MG PO QHS, #90 TAB Prov:HALI DING MD 05/19/18 Ticagrelor* (Brilinta*) 90 Mg Tablet, 90 MG PO BID, #90 TAB Prov:HALI DING MD 05/19/18 Discontinued Scripts Cyclobenzaprine Hcl* (Cyclobenzaprine Hcl*) 10 Mg Tablet, 10 MG PO TID, #15 TAB Prov:COLEEN MCPHERSON PA-C 08/28/17 Ibuprofen* (Motrin*) 600 Mg Tab, 600 MG PO Q6, #30 TAB Prov:COLEEN MCPHERSON PA-C 08/28/17 Follow-up Plan 1. Take all medications as prescribed. 2. Do not miss a single day of aspirin or ticagrelor. If you do you may develop a blood clot in your stent which would cause another heart attack. 3. Get a primary doctor through your insurance. Make an appointment in 1-2 weeks. 4. Return to the emergency room if you develop repeat pressure-like chest pain. Primary Care Provider Care Physician No Primary Time spent on discharge: > 30 minutes Pending Labs Laboratory Tests Test 05/19/18 06:50 05/19/18 09:29 Urine Opiates Screen Negative (NEGATIVE) Urine Barbiturates Negative (NEGATIVE) Urine Amphetamines Screen Positive (NEGATIVE) Urine Benzodiazepines Screen Negative (NEGATIVE) Urine Cocaine Screen Negative (NEGATIVE) Urine Cannabinoids Negative (NEGATIVE) White Blood Count 10.9 10^3/ul (4.8-10.8) Red Blood Count 5.67 10^6/ul (4.70-6.10) Hemoglobin 17.5 g/dl (14.0-18.0) Hematocrit 49.5 % (42.0-52.0) Mean Corpuscular Volume 87.3 fl (82.0-101.0) Mean Corpuscular Hemoglobin 30.9 pg (29.0-33.0) Mean Corpuscular 35.4 g/dl (32.0-37.0) Hemoglobin Concent Red Cell Distribution Width 12.5 % (11.5-14.5) Platelet Count 347 10^3/UL (140-415) Mean Platelet Volume 9.9 fl (7.4-10.4) Immature Granulocytes % 0.500 % (0.001-0.429) Neutrophils % 70.9 % (39.0-77.0) Lymphocytes % 21.2 % (15.0-51.0) Monocytes % 6.5 % (0.0-11.0) Eosinophils % 0.5 % (0.0-7.0) Basophils % 0.4 % (0.0-2.0) Nucleated Red Blood Cells % 0.0 /100WBC (0.0-0.0) Immature Granulocytes # 0.050 10^3/ul (0.0-0.031) Neutrophils # 7.7 10^3/ul (1.6-7.5) Lymphocytes # 2.3 10^3/ul (0.8-2.9) Monocytes # 0.7 10^3/ul (0.3-0.9) Eosinophils # 0.1 10^3/ul (0.0-0.5) Basophils # 0.0 10^3/ul (0.0-0.1) Nucleated Red Blood Cells # 0.0 10^3/ul (0.0-0.0) Sodium Level 141 mmol/L (135-144) Potassium Level 3.7 mmol/L (3.5-5.1) Chloride Level 106 mmol/L (97-110) Carbon Dioxide Level 26 mmol/L (21-31) Anion Gap 9 (5-13) Blood Urea Nitrogen 15 mg/dl (7-20) Creatinine 0.72 mg/dl (0.61-1.24) Est Glomerular Filtrat > 60 mL/min (>60) Rate mL/min Glucose Level 149 mg/dl (70-220) Calcium Level 9.7 mg/dl (8.4-10.2) Troponin I 6.470 ng/ml (0.000-0.120) HALI DING MD May 19, 2018 18:03
--- NOTE | 2018-05-20 08:47 | RADRPT ---
Vent Rate: 68 bpm RR Interval: 0 msec [place] Interval: 166 msec QRS Duration: 94 msec QT Interval: 418 msec QTC Interval: 444 msec P-R-T [place]: 3 - 68 - 61 degrees Normal sinus rhythm T wave abnormality, consider anterior ischemia Abnormal ECG Electronically Signed By: Raul Jo
== END 2018-05-19 18:54 | disposition home or self-care (01) | DRG 247 ==
LOC: E/R 11:27 → REC 11:59 → ICU 14:00 → 6WM 05-18 22:54
PROVIDERS: ADMIT Internal Medicine; ATTEND Internal Medicine
PROC: 4A023N7 Measurement of Cardiac Sampling and Pressure, Left Heart, Percutaneous Approach (ICD-10-PCS; 2018-05-17)
PROC: B211YZZ Fluoroscopy of Multiple Coronary Arteries using Other Contrast (ICD-10-PCS; 2018-05-17)
PROC: 3E073GC Introduction of Other Therapeutic Substance into Coronary Artery, Percutaneous Approach (ICD-10-PCS; 2018-05-17)
PROC: 027035Z Dilation of Coronary Artery, One Artery with Two Drug-eluting Intraluminal Devices, Percutaneous Approach (ICD-10-PCS; principal; 2018-05-17 12:00)
DX: I21.02 ST elevation (STEMI) myocardial infarction involving left anterior descending coronary artery (principal); I25.10 Atherosclerotic heart disease of native coronary artery without angina pectoris; I25.5 Ischemic cardiomyopathy; F17.200 Nicotine dependence, unspecified, uncomplicated
CPT/HCPCS: 36415; 71045; 80048; 80053; 80061; 80307; 82550; 82553; 83036; 83735; 84100; 84443; 84484; 85025; 85610; 85730; 87081; 93005; 93306; 93458; C1725; C1874; C1887; C9606; J0583; J1644; J2270; J3010; Q9967

== ENCOUNTER 2018-11-16 06:07 | Emergency (ER) | payer SELFPAY ==
[~2018-11-16] VITALS: Ht 157.5 cm; Wt 87.9 kg
[~2018-11-16 06:07] MED LIST changes: +ASPI-831 PO; -ASPIRIN 81 MG TAB ONE; +ATOR-2 PO; +CARV12.579 PO; -CYCL10TA7 PO; +GLYC1SUP92 PR; -IBUP-1542 PO; +LISI10TA2 PO; +NAPR-985 PO; -NITROGLYCERIN (SL) 0.4 MG TAB ONE; +TAMS-14 PO; +TICA90TA PO
[2018-11-16 06:16] VITALS: BP 139/85; PULSE 94; RESP 17; Ht 157.5 cm; Wt 87.9 kg
[2018-11-16] MEDS ORDERED: GLYCERIN (ADULT) SUPP PR ONE (06:30)
== END 2018-11-16 07:53 | disposition home or self-care (01) ==
LOC: FTE 06:07
DX: N20.0 Calculus of kidney (principal); F17.210 Nicotine dependence, cigarettes, uncomplicated; E66.9 Obesity, unspecified; Z68.35 Body mass index [BMI] 35.0-35.9, adult; Z79.82 Long term (current) use of aspirin; Z98.61 Coronary angioplasty status
CPT/HCPCS: 36415; 74176; 80053; 81003; 83690; 85025

== ENCOUNTER 2019-01-14 19:35 | Emergency (ER) | payer OTHER ==
[~2019-01-14] VITALS: Ht 157.5 cm; Wt 91.2 kg
[2019-01-14 19:39] VITALS: Ht 157.5 cm; Wt 91.2 kg
[2019-01-14 20:25] VITALS: BP 125/81; PULSE 109; RESP 25
== END 2019-01-14 20:31 | disposition home or self-care (01) ==
LOC: E/R 19:35
DX: Z00.00 Encounter for general adult medical examination without abnormal findings (principal); E66.9 Obesity, unspecified; F17.210 Nicotine dependence, cigarettes, uncomplicated; Z68.36 Body mass index [BMI] 36.0-36.9, adult
CPT/HCPCS: 93005; Z7502